=== PATIENT | female | born 1955 | race Caucasian/White ===

== ENCOUNTER 2019-03-15 07:16 | Day surgery (SDC) | payer MEDICARE, MEDICAID ==
[~2019-03-15 07:16] MED LIST: ADVAIR DISK1 INH; ALBUTEROL SUL0.083 % IN; ALL DAY ALLERGY10 MG PO; AMOXICILLIN500 MG PO; CALCIUM PO; FLEXERIL OR; FLUTICASONE50 MCG; LEVOTHYROXIN125 MC1 PO; MEDDOSEPAK PO; METHOCARBAM500 MG PO; MOBIC7.5 M1 PO; NEBULIZE2; NITROSTAT0.4 MG SL; NO HOME MEDS; PERCOCET 5/325M1 TAB OR; PREMARIN0.3 MG PO; PRILOSEC40 MG PO; QUDEXY XR25 MG PO; SYMBICORT1 AE1 IN; TRAMADOL HCL50 MG PO; VITAMIN B 650 MG PO; VITAMIN B-12500 MCG PO; VITAMIN D3400 UNI1 PO; VITAMIN E400 UNIT PO; [UNRECOGNIZED DRUG - OTHER] PO
[2019-03-15 09:39] VITALS: BP 123/70
== END 2019-03-15 09:52 | disposition home or self-care (01) ==
LOC: ENDO 07:16
PROVIDERS: ATTEND Surgery
PROC: 0DBH8ZX Excision of Cecum, Via Natural or Artificial Opening Endoscopic, Diagnostic (ICD-10-PCS; principal; 2019-03-15)
PROC: 0DBF8ZX Excision of Right Large Intestine, Via Natural or Artificial Opening Endoscopic, Diagnostic (ICD-10-PCS; 2019-03-15)
DX: Z12.11 Encounter for screening for malignant neoplasm of colon (principal); K57.30 Diverticulosis of large intestine without perforation or abscess without bleeding; K63.3 Ulcer of intestine; I10 Essential (primary) hypertension; J44.9 Chronic obstructive pulmonary disease, unspecified; E03.9 Hypothyroidism, unspecified; F17.200 Nicotine dependence, unspecified, uncomplicated; Z86.010 Personal history of colon polyps

== ENCOUNTER 2021-10-29 14:40 | Emergency (ER) | payer MEDICARE, MEDICAID ==
[~2021-10-29] VITALS: Ht 165.1 cm; Wt 88.6 kg
[2021-10-29 15:02] VITALS: BP 118/88
[2021-10-29 15:07] LABS: URINE BILIRUBIN - DIPSTICK NEGATIVE (NEGATIVE); URINE BLOOD DIPSTICK NEGATIVE (NEGATIVE); URINE COLOR YELLOW; URINE GLUCOSE - DIPSTICK NEGATIVE (NEGATIVE); URINE KETONE NEGATIVE (NEGATIVE); URINE LEUK ESTERASE TRACE (NEGATIVE); URINE PROTEIN - DIPSTICK NEGATIVE (NEG-TRACE); URINE UROBILINOGEN - DIPSTICK 0.2 E.U./dL (0.2)
[2021-10-29 15:08] LABS: URINE NITRITE - DIPSTICK NEGATIVE (Negative)
[2021-10-29 15:24] LABS: HEMATOCRIT 44.7 % (37.0-47.0); HEMOGLOBIN 14.7 g/dl (12.0-16.0); IMMATURE GRANULOCYTES 0.3 % (0.0-5.0); MEAN CELL VOLUME 84.8 fL CALC (80.0-100.0); MEAN CORPUSCULAR HGB 27.9 pG CALC (26.0-32.0); MEAN CORPUSCULAR HGB CONC 32.9 g/dL CAL (32.0-36.0); NEUT# 8.97 thou/uL (2.00-7.15); RED BLOOD COUNT 5.27 mill/uL (4.20-5.60); RED CELL DISTRI WIDTH 12.8 % (11.5-15.5)
[2021-10-29 15:30] VITALS: BP 117/80
[2021-10-29 16:22] LABS: ALBUMIN 4.4 g/dL (3.2-5.0); ALKALINE PHOSPHATASE 106 u/l (38-126); ANION GAP 13 (6-22 (CALC)); BILIRUBIN, TOTAL 0.7 mg/dL (0.0-1.4); BUN 13 mg/dL (8-23); BUN/CREATININE RATIO 14 (12-20 (CALC)); CHLORIDE 103 mmol/l (95-108); CREATININE 0.9 mg/dL (0.5-1.0); GFR > 60 ML/MIN (>=60 (CALC)); GFR FOR AFR.AMER. > 60 ML/MIN (>=60 (CALC)); LIPASE 209 u/l (23-300); POTASSIUM 3.7 mmol/l (3.5-5.1); SGOT/AST 32 u/l (9-36); SODIUM 136 mmol/l (137-146); TOTAL PROTEIN 8.2 g/dL (6.3-8.2)
[2021-10-29 16:29] LABS: CARBON DIOXIDE 24 mmol/l (22-30)
[2021-10-29] MEDS ORDERED: METRONIDAZOLE500 MG PO (17:54)
[2021-10-29] MEDS ORDERED: CIPROFLOXACN500 MG PO (17:54)
[2021-10-29] MEDS ORDERED: ZOFRAN4 MG/TAB PO (17:54)
== END 2021-10-29 18:00 | disposition home or self-care (01) ==
LOC: ED 14:40
PROVIDERS: Family Medicine
DX: K57.33 Diverticulitis of large intestine without perforation or abscess with bleeding (principal); I10 Essential (primary) hypertension; F17.200 Nicotine dependence, unspecified, uncomplicated; E03.9 Hypothyroidism, unspecified; E78.2 Mixed hyperlipidemia; J43.1 Panlobular emphysema
CPT/HCPCS: Q9967